=== PATIENT | female | born 1985 | race Caucasian/White ===

== ENCOUNTER 2017-08-28 04:50 | Emergency (ER) | payer OTHER ==
[~2017-08-28] VITALS: Ht 167.6 cm; Wt 65.0 kg
[~2017-08-28 04:50] MED LIST: HYDR-3535 PO
[2017-08-28] MEDS ORDERED: diphenhydrAMINE HCL 50 MG/ML VIAL ONE (04:55)
[2017-08-28 05:05] VITALS: BP 138/62; PULSE 144; RESP 20; TEMP 102.1; O2SAT 98
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
[2017-08-28] MEDS ORDERED: LORazepam 2 MG/ML VIAL IV PUSH ONE (05:45)
[2017-08-28] MEDS ORDERED: diphenhydrAMINE HCL 50 MG/ML VIAL IV PUSH ONE (05:45)
[2017-08-28] MEDS ORDERED: SODIUM CHLOR 0.9% 1000 ML INJ 1,000 ML IV ONE ×2 (05:45→07:00)
[2017-08-28 06:19] VITALS: BP 115/57; PULSE 92; RESP 15; TEMP 98.2; O2SAT 99
[2017-08-28 07:00] VITALS: BP 126/75; PULSE 72; RESP 16; O2SAT 100
[2017-08-28 08:00] VITALS: BP 128/73; PULSE 71; RESP 15; O2SAT 100
[2017-08-28 08:00] LABS: AUTOMATED NEUTROPHIL # 13.1 TH/MM3 (1.8-7.7); BASOPHIL % 0.2 % (0.0-2.0); EOSINOPHIL % 0.1 % (0.0-4.0); HEMATOCRIT 34.2 % (35.0-46.0); HEMO FLAGS DIFF FINAL; LYMPH % 6.6 % (9.0-44.0); MEAN CELL VOLUME 83.8 FL (80.0-100.0); MEAN CORPUSCULAR HEMOGLOBIN 27.6 PG (27.0-34.0); MEAN CORPUSCULAR HGB CONC 32.9 % (32.0-36.0); MONO % 6.5 % (0.0-8.0); NEUT % 86.6 % (16.0-70.0); PLATELET COUNT 302 TH/MM3 (150-450); RED BLOOD COUNT 4.08 MIL/MM3 (4.00-5.30); WHITE BLOOD COUNT 15.2 TH/MM3 (4.0-11.0)
[2017-08-28 08:14] LABS: ANION GAP 8 MEQ/L (5-15); AST (GOT) 19 U/L (15-37); BICARBONATE 22.8 MEQ/L (21.0-32.0); BLOOD UREA NITROGEN 10 MG/DL (7-18); CHLORIDE 112 MEQ/L (98-107); GLOMERULAR FILTRATION RATE 71 ML/MIN (>89); POTASSIUM 3.2 MEQ/L (3.5-5.1); SODIUM (NA) 143 MEQ/L (136-145)
[2017-08-28 08:15] LABS: ALT (GPT) 16 U/L (10-53)
[2017-08-28 08:17] LABS: ALKALINE PHOSPHATASE 56 U/L (45-117); TOTAL BILIRUBIN ADULT 0.6 MG/DL (0.2-1.0)
--- NOTE | 2017-08-28 08:59 | PD ---
Physical Exam Narrative Patient was seen by ED physician and signed out to me. Patient was Lopez acted for agitation and combative behavior. Data Data Last Documented VS Vital Signs Date Time Temp Pulse Resp B/P (MAP) Pulse Ox O2 Delivery O2 Flow Rate FiO2 08/28/17 06:19 98.2 92 15 115/57 (76) 99 Room Air Orders Orders Diphenhydramine Inj (Benadryl Inj) (08/28/17 04:55) Sodium Chlor 0.9% 1000 Ml Inj (Ns 1000 M (08/28/17 05:45) Diphenhydramine Inj (Benadryl Inj) (08/28/17 05:45) Lorazepam Inj (Ativan Inj) (08/28/17 05:45) Restraints Violent (08/28/17 06:46) Sodium Chlor 0.9% 1000 Ml Inj (Ns 1000 M (08/28/17 07:00) Complete Blood Count With Diff (08/28/17 07:08) Comprehensive Metabolic Panel (08/28/17 07:08) Psych Screen (08/28/17 07:08) Drug Screen, Random Urine (08/28/17 07:08) Dextrose 50% In Swapnil (Syr) Inj (D50w (Syr (08/28/17 09:00) Kcl Bolus Inj (08/28/17 09:00) Labs Laboratory Tests Test 08/28/17 07:30 08/28/17 07:35 Urine Opiates Screen NEG Urine Barbiturates Screen NEG Urine Amphetamines Screen POS Urine Benzodiazepines Screen NEG Urine Cocaine Screen POS Urine Cannabinoids Screen NEG White Blood Count 15.2 TH/MM3 Red Blood Count 4.08 MIL/MM3 Hemoglobin 11.3 GM/DL Hematocrit 34.2 % Mean Corpuscular Volume 83.8 FL Mean Corpuscular Hemoglobin 27.6 PG Mean Corpuscular Hemoglobin Concent 32.9 % Red Cell Distribution Width 15.0 % Platelet Count 302 TH/MM3 Mean Platelet Volume 9.0 FL Neutrophils (%) (Auto) 86.6 % Lymphocytes (%) (Auto) 6.6 % Monocytes (%) (Auto) 6.5 % Eosinophils (%) (Auto) 0.1 % Basophils (%) (Auto) 0.2 % Neutrophils # (Auto) 13.1 TH/MM3 Lymphocytes # (Auto) 1.0 TH/MM3 Monocytes # (Auto) 1.0 TH/MM3 Eosinophils # (Auto) 0.0 TH/MM3 Basophils # (Auto) 0.0 TH/MM3 CBC Comment DIFF FINAL Differential Comment Blood Urea Nitrogen 10 MG/DL Creatinine 0.92 MG/DL Random Glucose 53 MG/DL Total Protein 6.6 GM/DL Albumin 3.5 GM/DL Calcium Level 7.7 MG/DL Alkaline Phosphatase 56 U/L Aspartate Amino Transf (AST/SGOT) 19 U/L Alanine Aminotransferase (ALT/SGPT) 16 U/L Total Bilirubin 0.6 MG/DL Sodium Level 143 MEQ/L Potassium Level 3.2 MEQ/L Chloride Level 112 MEQ/L Carbon Dioxide Level 22.8 MEQ/L Anion Gap 8 MEQ/L Estimat Glomerular Filtration Rate 71 ML/MIN MDM Supervised Visit with BENNY: No Interpretation(s) 857 AM. CBC WBC 15.2. Hemoglobin 11.3. 86 neutrophil. Potassium 3.2. Glucose 53. Urine drug screen positive for amphetamine and cocaine. Narrative Course KCl 20 mEq IV given. D50 IV given. Scripts Unable to Obtain Active Prescriptions or Reported Meds Hernan Wright MD Aug 28, 2017 08:59
[2017-08-28 09:00] VITALS: BP 116/69; PULSE 68; RESP 16; O2SAT 100
[2017-08-28] MEDS ORDERED: POTASSIUM CHLOR 20 MEQ PREMIX 100 ML IV ONE (09:00)
[2017-08-28] MEDS ORDERED: DEXTROSE 50% IN WATER 50 ML SYRINGE IV PUSH ONE (09:00)
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
--- NOTE | 2017-08-28 16:48 | PD ---
Physical Exam Narrative I was asked by the psych department to discharge patient after patient was evaluated and Lopez acted lifted by psych. Patient was previously medically cleared by previous provider. Please see their documentation for full H&P. Patient denies any homicidal or suicidal ideations. Denies any medical concerns at this time. Data Data Last Documented VS Vital Signs Date Time Temp Pulse Resp B/P (MAP) Pulse Ox O2 Delivery O2 Flow Rate FiO2 08/28/17 09:00 68 16 116/69 (85) 100 Room Air 08/28/17 06:19 98.2 Orders Orders Diphenhydramine Inj (Benadryl Inj) (08/28/17 04:55) Sodium Chlor 0.9% 1000 Ml Inj (Ns 1000 M (08/28/17 05:45) Diphenhydramine Inj (Benadryl Inj) (08/28/17 05:45) Lorazepam Inj (Ativan Inj) (08/28/17 05:45) Restraints Violent (08/28/17 06:46) Sodium Chlor 0.9% 1000 Ml Inj (Ns 1000 M (08/28/17 07:00) Complete Blood Count With Diff (08/28/17 07:08) Comprehensive Metabolic Panel (08/28/17 07:08) Psych Screen (08/28/17 07:08) Drug Screen, Random Urine (08/28/17 07:08) Dextrose 50% In Swapnil (Syr) Inj (D50w (Syr (08/28/17 09:00) Potassium Chlor 20 Meq Premix (Kcl 20 Me (08/28/17 09:00) Ed Discharge Order (08/28/17 16:49) Labs Laboratory Tests Test 08/28/17 07:30 08/28/17 07:35 Urine Opiates Screen NEG Urine Barbiturates Screen NEG Urine Amphetamines Screen POS Urine Benzodiazepines Screen NEG Urine Cocaine Screen POS Urine Cannabinoids Screen NEG White Blood Count 15.2 TH/MM3 Red Blood Count 4.08 MIL/MM3 Hemoglobin 11.3 GM/DL Hematocrit 34.2 % Mean Corpuscular Volume 83.8 FL Mean Corpuscular Hemoglobin 27.6 PG Mean Corpuscular Hemoglobin Concent 32.9 % Red Cell Distribution Width 15.0 % Platelet Count 302 TH/MM3 Mean Platelet Volume 9.0 FL Neutrophils (%) (Auto) 86.6 % Lymphocytes (%) (Auto) 6.6 % Monocytes (%) (Auto) 6.5 % Eosinophils (%) (Auto) 0.1 % Basophils (%) (Auto) 0.2 % Neutrophils # (Auto) 13.1 TH/MM3 Lymphocytes # (Auto) 1.0 TH/MM3 Monocytes # (Auto) 1.0 TH/MM3 Eosinophils # (Auto) 0.0 TH/MM3 Basophils # (Auto) 0.0 TH/MM3 CBC Comment DIFF FINAL Differential Comment Blood Urea Nitrogen 10 MG/DL Creatinine 0.92 MG/DL Random Glucose 53 MG/DL Total Protein 6.6 GM/DL Albumin 3.5 GM/DL Calcium Level 7.7 MG/DL Alkaline Phosphatase 56 U/L Aspartate Amino Transf (AST/SGOT) 19 U/L Alanine Aminotransferase (ALT/SGPT) 16 U/L Total Bilirubin 0.6 MG/DL Sodium Level 143 MEQ/L Potassium Level 3.2 MEQ/L Chloride Level 112 MEQ/L Carbon Dioxide Level 22.8 MEQ/L Anion Gap 8 MEQ/L Estimat Glomerular Filtration Rate 71 ML/MIN MDM Supervised Visit with BENNY: No Narrative Course Patient in no obvious distress upon re-evaluation. Patient ambulated without difficulty out of ED at discharge. Diagnosis Primary Impression: Substance abuse Referrals: [facility] Patient Instructions: General Instructions, Polysubstance Abuse (ED) Additional Instruction: Follow-up with your primary care physician and/or Chester Mark next week for reevaluation. Stop doing drugs. Return to the emergency department if symptoms get worse. Scripts Unable to Obtain Active Prescriptions or Reported Meds Disposition: 01 DISCHARGE HOME Condition: Stable Jeffery Greenberg Aug 28, 2017 16:48
== END 2017-08-28 17:15 | disposition home or self-care (01) ==
LOC: NEPC 04:50 → NEPJ 17:15
DX: F14.10 Cocaine abuse, uncomplicated (principal); F15.10 Other stimulant abuse, uncomplicated; F43.10 Post-traumatic stress disorder, unspecified; F31.9 Bipolar disorder, unspecified; F17.200 Nicotine dependence, unspecified, uncomplicated; Z88.8 Allergy status to other drugs, medicaments and biological substances
CPT/HCPCS: 80053; 80307; 85025; 96361; 96365; 96366; 96375; 99285; J1200; J2060; J3480; J7030